=== PATIENT | male | born 1980 | race Caucasian/White ===

== ENCOUNTER 2016-08-25 20:21 | Emergency (ER) | payer OTHER ==
[2016-08-25 21:04] VITALS: BP 122/77
[2016-08-25] MEDS ORDERED: ONDANSETRON 4 MG TAB.RAPDIS PO ONE (21:29)
[2016-08-25] MEDS ORDERED: ONDANSETRON 4 MG TAB.RAPDIS ONE (21:30)
--- NOTE | 2016-09-28 23:25 | ERNOTE ---
Time Seen by Provider: 08/25/16 21:22 Stated Complaint: DIZZINESS/NASAL ISSUES Immunizations: IMMUNIZATION HX Immunizations Up to Date Yes History of Influenza Vaccine No Hx Pneumococcal Vaccination No Allergies/Adverse Reactions: Allergies Penicillins Allergy (Intermediate, Verified 07/30/12 22:11) Hives Home Medications: HOME MEDICATIONS Albuterol Sulfate 1.25 mg IH PRN 07/30/12 [Last Taken Unknown] Meclizine HCl [Antivert] 25 mg PO QID PRN 08/25/16 [Last Taken Unknown] Ondansetron [Zofran Odt] 4 mg PO Q8H PRN #12 tab.rapdis 08/25/16 [Last Taken Unknown] - History of Present Ilness Timing: intermittent Severity: moderate Frequency/Possible Cause: Reports: no prior episodes - Patient's Past Medical History Patient History - Medical: Anxiety Patient History - Cardiac/Respiratory: Asthma, Hyperlipidemia, Pneumonia, Other Patient History - Cancer: No Hx of Cancer Patient History - Surgical Procedures: Other - Social History Smoking Status: Current every day smoker Patient requests Smoking Cessation Consult: No Initiate information on Smoking Cessation: No - Immunizations Immunizations Up to Date: Yes Hx Pneumococcal Vaccination: No History of Influenza Vaccine: No Physical Exam - Physical Exam General Appearance: Present: wd/wn, alert, no apparent distress Eye Exam: Normal inspection: bilateral, PERRL: bilateral, EOMI: bilateral Ears, Nose, Throat: Present: normal ENT inspection Neck: Present: normal inspection, nontender, supple, full range of motion Respiratory: Present: no respiratory distress, normal breath sounds, no accessory muscle use, chest nontender, lungs clear Cardiovascular/Chest: Present: regular rate, rhythm, no murmur, normal peripheral pulses Gastrointestinal/Abdominal: Present: normal bowel sounds, nontender, nondistended Extremity Exam: Present: normal inspection, normal except -, non-tender Neurological Exam: Present: alert, normal mood/affect, other - no focal neurological deficits. ED Progress - Vital Signs Patient's Vital Signs:: I have reviewed the patient's vital signs. - Progress/Reassessment Chief Complaint: Upper Respiratory Symptoms Departure - Departure Clinical Impression: Benign positional vertigo Qualifiers: Laterality: unspecified laterality Qualified Code(s): H81.10 - Benign paroxysmal vertigo, unspecified ear Disposition: Home self-care Condition: Good Instructions: Vertigo, [id number] Prescriptions: Ondansetron [Zofran Odt] 4 mg PO Q8H PRN #12 tab.rapdis PRN Reason: Nausea
== END 2016-08-25 21:34 | disposition home or self-care (01) ==
LOC: ER 20:21
DX: H81.10 Benign paroxysmal vertigo, unspecified ear (principal); F17.210 Nicotine dependence, cigarettes, uncomplicated